=== PATIENT | male | born 1970 | race African-American/Black ===

== ENCOUNTER 2016-10-01 11:55 | Observation (INO) | payer MEDICAID ==
[2016-10-01] MEDS ORDERED: CATAPRES TAB 0.1 MG PO PRN (12:29)
--- NOTE | 2016-10-01 12:36 | DR.H&P ---
H&P - History & Physical for Day of: H&P Date: 10/01/16 - Chief Complaint Chief Complaint: HTN - History of Present Illness History of Present Illness: THE PATIENT IS A 46 YEAR OLD MALE WHO IS A PATIENT OF MY PRIVATE PRACTICE. THE PATIENT HAS BEEN HAVING SOME ISSUES WITH UNCONTROLLED HTN AND WAS SEEN IN THE OFFICE FOR MEDICATION ADJUSTMENTS. THE PATIENT HAS BEEN TAKING NEW MEDICATIONS WITH LITTLE TO NO IMPROVEMENT IN HYPERTENSIVE STATE. SUBSEQUENTLY, THE PATIENT WILL BE ADMITTED TO [facility] FOR FURTHER EVALUATION AND MANAGMENT. - Past Medical History Past Medical History: GERD, Hypertension - Past Surgical History Surgical History: Unknown - Social History Does patient currently use any type of tobacco product: No Have you used tobacco products in the last 12 months: No Type of Tobacco Use: None Does any household member use tobacco: No Alcohol Use: Occasionally Drug Use: None - Review of Systems Constitutional: No Symptoms Reported Eyes: No Symptoms Reported ENT: No Symptoms Reported Respiratory: No Symptoms Reported Cardiovascular: See HPI Gastrointestinal: No Symptoms Reported Genitourinary: No Symptoms Reported Musculoskeletal: No Symptoms Reported Skin: No Symptoms Reported Neurological: No Symptoms Reported Oriented: Normal Eyes: Normal Ear: Normal Nose: Normal Throat: Normal Respiratory: Clear Throughout Cardiovascular: Normal : Normal Auscultation: Bowel Sounds: Normal Palpation: Normal Skin: Normal Musculoskeletal: Normal Mood Description: Calm Affect: Normal Speech Pattern: Clear, Appropriate - Assessment/Plan (1) Hypertensive urgency Status: Acute Plan: HYDRALIZINE 10MG IVP Q4H BP > 180/100. CLONIDINE 0.1MG PO Q4H BP > 180/ 100
[2016-10-01] MEDS: NS 1000 ML 1,000 ML IV SCH (14:09)
[2016-10-01] MEDS: APRESOLINE INJ 20 MG VIAL IVP PRN ×2 (14:10→22:07)
[2016-10-01 14:25] LABS: BASOPHILS % (AUTO) 1.2 % (0.2-1.0); EOSINOPHILS # (AUTO) 0.2 x10^3/uL (0.0-0.2); EOSINOPHILS % (AUTO) 4.5 % (0.9-2.9); HEMATOCRIT 43.9 % (42.0-54.0); LYMPHOCYTES # (AUTO) 1.5 X10^3/uL (1.3-2.9); LYMPHOCYTES % (AUTO) 39.2 % (21.0-51.0); MEAN CORPUSCULAR HGB CONC 34.1 g/dL (33.0-35.0); MEAN CORPUSCULAR VOLUME 93.8 fL (80.0-100.0); MEAN PLATELET VOLUME 8.7 fL (7.4-11.0); MONOCYTES # (AUTO) 0.4 x10^3/uL (0.3-0.8); MONOCYTES % (AUTO) 11.3 % (0.0-13.0); NEUTROPHILS # (AUTO) 1.7 x10^3/uL (2.2-4.8); NEUTROPHILS % (AUTO) 43.8 % (42.0-75.0); PLATELET COUNT 170 X10^3/uL (150.0-450.0); RED BLOOD COUNT 4.68 X10^6/uL (4.7-6.0); RED CELL DISTRIBUTION WIDTH 14.2 % (11.6-16.5); WHITE BLOOD COUNT 3.9 X10^3/uL (3.6-10.0)
[2016-10-01 14:34] LABS: PLATELET MORPHOLOGY COMMENT NORMAL (NORMAL)
--- NOTE | 2016-10-01 14:41 | RAD ---
HISTORY: Hypertension. Study: Portable chest. Comparison: None. Findings: The trachea is midline. The cardiac silhouette is mildly enlarged. The lungs are clear without foc al infiltrate or effusion. The bony thorax is unremarkable. IMPRESSION: Mild cardiomegaly. No acute pulmonary process. Reported By:
[2016-10-01 14:46] LABS: ALANINE AMINOTRANSFERASE 48 Units/L (12-78); ALBUMIN 3.4 g/dL (3.4-5.0); ALKALINE PHOSPHATASE 104 Units/L (46-116); ASPARTATE AMINO TRANSFERASE 24 Units/L (15-37); BLOOD UREA NITROGEN 18 mg/dL (7-18); CALCIUM 8.8 mg/dL (8.5-10.1); CARBON DIOXIDE 30.8 mmol/L (21-32); CHLORIDE 103 mmol/L (98-107); CKMB % 1.8 % (<4); COR NA(FOR HYPERGLY) 140 mmol/L (136-145); CREATINE KINASE 156 Units/L (39-308); CREATINE KINASE MB 2.8 ng/mL (0-4.0); CREATININE 1.83 mg/dL (0.70-1.30); GLUCOSE 114 mg/dL (65-99); SODIUM 140 mmol/L (136-145); TOTAL PROTEIN 7.9 g/dL (6.4-8.2); TROPONIN I 0.06 ng/mL (0-1.5); eGFR BLACK RACES 52 (>60); eGFR NON BLACK RACES 43 (>60)
[2016-10-01 14:49] LABS: CKMB % 1.6 % (<4); CREATINE KINASE MB 2.6 ng/mL (0-4.0); TROPONIN I 0.06 ng/mL (0-1.5)
[2016-10-01 21:12] LABS: CKMB % 1.9 % (<4); CREATINE KINASE MB 2.5 ng/mL (0-4.0); TROPONIN I 0.07 ng/mL (0-1.5)
[2016-10-01] MEDS ORDERED: ZANAFLEX PO PRN (23:57)
[2016-10-02] MEDS: NS 1000 ML 1,000 ML IV SCH ×2 (02:27→04:25)
[2016-10-02] MEDS: APRESOLINE INJ 20 MG VIAL IVP PRN ×2 (02:45→07:30)
[2016-10-02 03:06] LABS: BASOPHILS # (AUTO) 0.1 X10^3/uL (0.0-0.1); BASOPHILS % (AUTO) 1.1 % (0.2-1.0); EOSINOPHILS # (AUTO) 0.2 x10^3/uL (0.0-0.2); EOSINOPHILS % (AUTO) 5.1 % (0.9-2.9); HEMATOCRIT 42.4 % (42.0-54.0); HEMOGLOBIN 14.6 g/dL (13.5-18.0); LYMPHOCYTES # (AUTO) 1.6 X10^3/uL (1.3-2.9); MEAN CORPUSCULAR HEMOGLOBIN 31.9 pg (27.0-34.0); MEAN CORPUSCULAR HGB CONC 34.3 g/dL (33.0-35.0); MEAN CORPUSCULAR VOLUME 92.8 fL (80.0-100.0); MEAN PLATELET VOLUME 8.7 fL (7.4-11.0); MONOCYTES # (AUTO) 0.4 x10^3/uL (0.3-0.8); MONOCYTES % (AUTO) 9.3 % (0.0-13.0); NEUTROPHILS # (AUTO) 2.3 x10^3/uL (2.2-4.8); NEUTROPHILS % (AUTO) 50.5 % (42.0-75.0); PLATELET COUNT 163 X10^3/uL (150.0-450.0); RED BLOOD COUNT 4.57 X10^6/uL (4.7-6.0); RED CELL DISTRIBUTION WIDTH 14.2 % (11.6-16.5); WHITE BLOOD COUNT 4.6 X10^3/uL (3.6-10.0)
[2016-10-02 03:17] LABS: ALANINE AMINOTRANSFERASE 41 Units/L (12-78); ALBUMIN 3.1 g/dL (3.4-5.0); ALKALINE PHOSPHATASE 98 Units/L (46-116); ASPARTATE AMINO TRANSFERASE 25 Units/L (15-37); BLOOD UREA NITROGEN 15 mg/dL (7-18); CALCIUM 8.4 mg/dL (8.5-10.1); CHLORIDE 104 mmol/L (98-107); COR CA(FOR HYPOALB) 9.1 mg/dL (8.5-10.1); COR NA(FOR HYPERGLY) 140 mmol/L (136-145); CREATININE 1.56 mg/dL (0.70-1.30); GLUCOSE 135 mg/dL (65-99); SODIUM 139 mmol/L (136-145); TOTAL PROTEIN 7.3 g/dL (6.4-8.2); eGFR BLACK RACES > 60 (>60); eGFR NON BLACK RACES 51 (>60)
[2016-10-02 03:24] LABS: CREATINE KINASE MB 2.3 ng/mL (0-4.0); TROPONIN I 0.08 ng/mL (0-1.5)
[2016-10-02] MEDS ORDERED: POTASSIUM CHLORIDE LIQ 20 MEQ UDC PO PRN (04:02)
[2016-10-02] MEDS ORDERED: K-LYTE EFFERVESCENT PO PRN (04:02)
[2016-10-02] MEDS ORDERED: K-RIDER 10 MEQ/NS 100 ML 10 MEQ/100 ML BAG IV PRN (04:02)
[2016-10-02] MEDS ORDERED: K-DUR TAB 20 MEQ PO PRN (04:02)
[2016-10-02] MEDS ORDERED: PATIENT'S HOME MEDICATION (Tizanidine Hcl [Zanaflex 4 Mg] 4 MG) PO PRN (08:58)
[2016-10-02] MEDS ORDERED: PATIENT'S HOME MEDICATION (Albuterol Sulfate [Proventil Hfa Inhaler 6.7 Gm] 2 INH) IN PRN (08:58)
[2016-10-02] MEDS ORDERED: NORCO 7.5/325 MG TAB PO PRN (08:58)
[2016-10-02] MEDS ORDERED: HYDRALAZINE HCL 100 MG PO SCH (09:00)
[2016-10-02] MEDS ORDERED: CATAPRES TAB 0.3 MG PO SCH (09:00)
[2016-10-02] MEDS ORDERED: ZANTAC PO SCH (09:00)
[2016-10-02] MEDS ORDERED: CLARITIN PO SCH (09:00)
[2016-10-02] MEDS ORDERED: CELEXA PO SCH (09:00)
[2016-10-02] MEDS ORDERED: PATIENT'S HOME MEDICATION (Losartan Potassium [Losartan Potassium] 100 MG) PO SCH (09:00)
[2016-10-02] MEDS ORDERED: ZANAFLEX PO PRN (09:47)
[2016-10-02] MEDS ORDERED: APRESOLINE TAB 25 MG PO SCH (10:00)
[2016-10-02] MEDS: NEURONTIN CAP 400 MG PO SCH ×2 (11:04→13:38)
[2016-10-02 12:24] VITALS: BP 189/99
[2016-10-02] MEDS ORDERED: PROVENTIL NEB TX 0.083% 2.5MG/ 3ML NEB SCH (13:00)
[2016-10-02] MEDS ORDERED: REQUIP PO SCH (21:00)
[2016-10-02] MEDS ORDERED: SINEquan PO SCH (21:00)
[2016-10-02] MEDS ORDERED: DOXEPIN HCL PO SCH (21:00)
[2016-10-03] MEDS ORDERED: COZAAR PO SCH (09:00)
== END 2016-10-02 15:10 | disposition home or self-care (01) ==
LOC: UNDOADMOB 11:55 → MED/SURG 11:55
PROVIDERS: ADMIT Internal Medicine; ATTEND Internal Medicine
DX: I16.0 Hypertensive urgency (principal); R94.31 Abnormal electrocardiogram [ECG] [EKG]; I51.7 Cardiomegaly; K21.9 Gastro-esophageal reflux disease without esophagitis; R94.4 Abnormal results of kidney function studies
CPT/HCPCS: 36415; 71010; 80053; 82550; 82553; 84132; 84484; 85025; 87086; 93005; 93010; 94760; A4216; A4222; G0378; J0360

== ENCOUNTER 2018-01-02 14:40 | Inpatient (IN) ==
[2018-01-02] MEDS ORDERED: LASIX IVP STA (15:42)
--- NOTE | 2018-01-02 15:47 | DR.EXTPAIN ---
HPI - Time seen Time seen: 15:40 - PCP Primary Care Physician: DOMINIK - Complaint/Symptoms Chief Complaint Doctor Comments: Patient is complaining of hurting all over. Patient was sleeping and had to wake him up for exam. Patient is complaining of his knees hurting and his legs swelling for a few days. states he does not have any water pills. States he can walk with a walker but he mainly stay in bed all day. States he is considering signing the papers to go to rehab. States he lives alone and he is a patient of Dr. Maravilla. He denies any recent trauma. states he has had a stroke and the right side is weak but he can move his arm and legs. He denies chest pain, cold, cough or wheezing. States he has been taking pain pills today. Chief Complaint:: PT C/O BILAT KNEE PAIN. PT DENIES ANY TRAUMA. PT STATES HE HAS BEEN HAVING PAIN FOR THE PAST COUPLE OF DAYS. - Nurses notes reviewed Nurses Notes Review: Yes - Source History Provided: Patient, EMS - Mode of arrival Mode of Arrival: EMS - Timing Onset of Chief Complaint: 12/31/17 - Context History of: Gout, Arthritis - Associated signs and symptoms Associated Signs and Symptoms: Pain, Swelling PMH - PMH Past Medical History: Yes Past Medical History: Arthritis, COPD, CVA, Dyslipidemia, GERD, Gout, Hypertension Past Surgical History: Yes Surgical History: Tonsillectomy, Other - Family History History of Family Medical Conditions: Yes Family Medical History: Hypertension - Social History Does any household member use tobacco: No Alcohol Use: None Do you use any recreational Drugs:: No Lives With: Family Lives Where: Home - infectious screening In the last 2 months have you had wt loss of >10#?: NO Have you had fever, night sweats or hemotysis?: No Have you traveled outside the country in the last 6 months?: No Isolation: Standard ROS - Review of Systems Constitutional: No Symptoms Reported, Weakness Eyes: No Symptoms Reported. negative: See HPI, Eye Pain, Blurred Vision, Tearing, Discharge, Photophobia, Diplopia, Other ENTM: No Symptoms Reported Respiratoy: No Symptoms Reported Cardiovascular: No Symptoms Reported, Edema. negative: See HPI, Chest Pain, Palpitations, Syncope, Cyanosis, Skin Mottling, Other Gastrointestinal/Abdominal: No Symptoms Reported. negative: See HPI, Abdominal Pain, Constipation, Diarrhea, Nausea, Vomiting, Food Intolerance, Other Genitourinary: No Symptoms Reported Neurological: No Symptoms Reported, Problems Walking (knee pain and right side chronic weakness) Musculoskeletal: No Symptoms Reported, Right, Left, Knee Integumentary: No Symptoms Reported. negative: See HPI, Change in Color, Change in Hair/Nails, Dryness, Lesions, Lumps, Rash, Itching, Wound, Bruises, Juandice, Other Hematologic/Lymphatic: No Symptoms Reported Endocrine: No Symptoms Reported Psychiatric: No Symptoms Reported PE - General Limitations: No Limitations General Appearance: Alert, In Distress (slight), Obese - Head Head Exam: Normal Inspection, Atraumatic, Normocephalic - Eyes Eye exam: Normal Appearance, PERRL, EOMI. negative: Scleral Icterus, Conjunctival Injection, Nystagmus, Miosis, Mydrasis, Periorbital Swelling, Periorbital Tenderness, Other - ENT ENT Exam: Normal Exam, Normal Oropharynx, Normal External Ear Exam, Mucous Membranes Moist, TM's Normal Bilaterally - Neck Neck Exam: Normal Inspection, Full ROM, Trachea Midline. negative: Tenderness, Meningismus, Lymphadenopathy, Thyromegaly, Other - Chest Chest Inspection: Normal Inspection, Symmetric Chest Wall Rise - Respiratory Respiratory Exam: Normal Lung Sounds Bilat Respiratory Exam: Bilateral Clear to Auscultation - Cardiovascular Cardiovascular Exam: Regular Rate, Normal Rhythm, Normal Heart Sounds, Systolic Murmur - Abdominal Exam Abdominal Exam: Normal Inspection, Normal Bowel Sounds, Soft Abdominal Tenderness: negative: RUQ, RLQ, LUQ, LLQ, Epigastrium, Suprapubic, Diffuse, Mild, Moderate, Severe, Other - Extremities Extremities Exam: Normal Inspection, Full ROM, Normal Capillary Refill, Edema (2 -3+ edema), Joint Swelling (right knee with swelling; warm) - Upper Extremities Shoulder Exam: Normal Inspection, Full ROM Arm Exam: Normal Inspection, Full ROM. negative: Tenderness, Swelling, Abrasion , Laceration, Ecchymosis, Deformity, Crepitus, Erythema, Other Elbow Exam: Normal Inspection, Full ROM, Swelling (right arm with moderated swelling). negative: Tenderness, Abrasion, Laceration, Ecchymosis, Deformity, Crepitus, Dislocation, Erythema, Effusion, Pain w/ pronation, Pain w/ Spuination , Tenderness over Radial Head, Other Forearm Exam: Normal Inspection, Full ROM, Swelling. negative: Tenderness Hand Exam: Normal Inspection, Full ROM, Swelling (right hand with moderate swelling; no bruising or pain). negative: Tenderness Neuromotor Exam: Normal Exam. negative: Thumb Opposition (right hand unable to approximate fingers well) Neurosensory Exam: Normal Exam Upper Ext. Vascular Exam: Capillary Refill, Radial Pulse (normal) - Lower Extremities Hip/Pelvis Exam: Normal Inspection, Full ROM Upper Leg Exam: Normal Inspection. negative: Full ROM (right leg with decreased strength 3-4/5) Knee Exam: Normal Inspection, Tenderness (right knee with swelling, warm ) Lower Leg Exam: Normal Inspection, Swelling (right lower leg with 2-3+ edema). negative: Tenderness Ankle Exam: Normal Inspection, Swelling (right leg) Foot/Toe Exam: Normal Inspection, Full ROM, Swelling Neurovascular/Tendon Exam: Normal Capillary Refill Gait Exam: Not Tested/Not Observed - Back Back Exam: Normal Inspection, Full ROM - Neurological Neurological Exam: Alert, Oriented X3. negative: CN II-XII Intact (right hemiparesis), Normal Gait (not tested) - Psychiatric Psychiatric Exam: Normal Affect, Normal Mood - Skin Skin Exam: Warm, Dry, Intact, Normal Color Type of Lesion: negative: Rash, Abscess, Laceration, Foreign Body, Bite/Sting, Abrasion, Other Distribution: negative: Generalized, Involves Palms/Soles, Head, Face, Neck, Thorax, Chest, Back, Abdomen, Genitals, LUE, LLE, RUE, RLE, Other Description: negative: Size, Tenderness, Erythematous, Swelling, Macular, Papular, Vesicular, Blisters, Cofluent, Bullous, Petechial, Purpuric, Urticarial , Crusting, Discharge, Fluctuant, Indurated, Other - Vital Signs Vitals: Temperature 99.5 F Pulse Rate 73 Respiratory Rate 20 Blood Pressure [Right Arm] 188/110 Blood Pressure [Left Arm] 189/99 Blood Pressure 148/69 O2 Sat by Pulse Oximetry 97 Course - Reevaluation 1st: Improved - Consultation Called: 19:55 Call Returned: 19:55 (Dr. Maravilla to admit) - Education/Counseling Education/Counseling: Patient, Family Educated On: Treatment, Diagnosis, Needs for Follow Up ROR - Labs Reviewed Laboratory Results Reviewed?: Yes (All labs and x-ray results reviewed and discussed with patient) Result Diagrams: 01/02/18 15:52 01/02/18 15:52 - XRAY XRAY Interpreted by: Radiologist (CXR: Cardiomegaly with increased incardiac size compared to prior studies suggest cardiomegaly.), Both (Right knee: Nonspecific soft tissue swelling. Mild medial compartment osteoarthritis) XRAY Findings: Doppler venous studies: Negative for DVT. - EKG Rate: 71 [place]: Normal Rhythm: NSR Block: None ST: Nonsp - Labs Reviewed Laboratory: WBC 4.9 X10^3/uL (3.6-10.0) 01/02/18 15:52 RBC 3.18 X10^6/uL (4.7-6.0) L 01/02/18 15:52 Hgb 10.0 g/dL (13.5-18.0) L 01/02/18 15:52 Hct 29.4 % (42.0-54.0) L 01/02/18 15:52 MCV 92.6 fL (80.0-100.0) 01/02/18 15:52 MCH 31.3 pg (27.0-34.0) 01/02/18 15:52 MCHC 33.8 g/dL (33.0-35.0) 01/02/18 15:52 RDW 15.0 % (11.6-16.5) 01/02/18 15:52 Plt Count 148 X10^3/uL (150.0-450.0) L 01/02/18 15:52 MPV 9.0 fL (7.4-11.0) 01/02/18 15:52 Neut % (Auto) 55.9 % (42.0-75.0) 01/02/18 15:52 Lymph % (Auto) 29.8 % (21.0-51.0) 01/02/18 15:52 [place] % (Auto) 8.6 % (0.0-13.0) 01/02/18 15:52 Eos % (Auto) 4.3 % (0.9-2.9) H 01/02/18 15:52 Baso % (Auto) 1.4 % (0.2-1.0) H 01/02/18 15:52 Neut # (Auto) 2.7 x10^3/uL (2.2-4.8) 01/02/18 15:52 Lymph # (Auto) 1.5 X10^3/uL (1.3-2.9) 01/02/18 15:52 [place] # (Auto) 0.4 x10^3/uL (0.3-0.8) 01/02/18 15:52 Eos # (Auto) 0.2 x10^3/uL (0.0-0.2) 01/02/18 15:52 Baso # (Auto) 0.1 X10^3/uL (0.0-0.1) 01/02/18 15:52 Absolute Nucleated RBC 0.0 /100WBC 01/02/18 15:52 INR Target Range - 01/02/18 15:52 INR 1.09 (0.8-1.3) 01/02/18 15:52 APTT 35.8 SECONDS (22.9-36.5) 01/02/18 15:52 PTT Comment - 01/02/18 15:52 D-Dimer 853 ng/mL (0-400) H* 01/02/18 15:52 Sodium 143 mmol/L (136-145) 01/02/18 15:52 Corrected Sodium 144 mmol/L (136-145) 01/02/18 15:52 Potassium 3.4 mmol/L (3.5-5.1) L 01/02/18 15:52 Chloride 106 mmol/L (98-107) 01/02/18 15:52 Carbon Dioxide 32.1 mmol/L (21-32) H 01/02/18 15:52 BUN 21 mg/dL (7-18) H 01/02/18 15:52 Creatinine 1.88 mg/dL (0.70-1.30) H 01/02/18 15:52 Est GFR (MDRD) Af Amer 50 (>60) L 01/02/18 15:52 Est GFR (MDRD) Non-Af 41 (>60) L 01/02/18 15:52 Glucose 128 mg/dL (65-99) H 01/02/18 15:52 Uric Acid 8.8 mg/dL (3.5-7.2) H 01/02/18 15:52 Calcium 8.5 mg/dL (8.5-10.1) 01/02/18 15:52 Corrected Calcium TNP 01/02/18 15:52 Magnesium 1.9 mg/dL (1.7-2.9) 01/02/18 15:52 Total Bilirubin 0.40 mg/dL (0.2-1.0) 01/02/18 15:52 AST 17 Units/L (15-37) 01/02/18 15:52 ALT 22 Units/L (12-78) 01/02/18 15:52 Alkaline Phosphatase 81 Units/L (46-116) 01/02/18 15:52 Creatine Kinase 287 Units/L (39-308) 01/02/18 15:52 CK-MB (CK-2) 2.0 ng/mL (0-4.0) 01/02/18 15:52 CK/CKMB % Calc 0.7 % (<4) 01/02/18 15:52 Troponin I 0.03 ng/mL (0-1.5) 01/02/18 15:52 B-Natriuretic Peptide 681 pg/mL (0-79) H* 01/02/18 15:52 Total Protein 7.6 g/dL (6.4-8.2) 01/02/18 15:52 Albumin 3.5 g/dL (3.4-5.0) 01/02/18 15:52 Globulin 4.1 g/dL (2.5-4.5) 01/02/18 15:52 Albumin/Globulin Ratio 0.9 Ratio (1.1-2.1) L 01/02/18 15:52 - Diagnosis Discharge Problem: Acute gout, Chronic kidney disease (CKD), Cerebrovascular accident (CVA) with right hemiparesis, Dependent edema Congestive heart failure (CHF) Qualifiers: Heart failure type: diastolic Heart failure chronicity: acute on chronic Qualified Code(s): I50.33 - Acute on chronic diastolic (congestive) heart failure Cardiomyopathy Qualifiers: Cardiomyopathy type: unspecified Qualified Code(s): I42.9 - Cardiomyopathy, unspecified - Discharge Plan Condition: Stable - Follow ups/Referrals Follow ups/Referrals: AMY MARAVILLA [Primary Care Provider] - 3 days - Instructions
[2018-01-02 15:59] LABS: BASOPHILS # (AUTO) 0.1 X10^3/uL (0.0-0.1); BASOPHILS % (AUTO) 1.4 % (0.2-1.0); EOSINOPHILS # (AUTO) 0.2 x10^3/uL (0.0-0.2); EOSINOPHILS % (AUTO) 4.3 % (0.9-2.9); HEMATOCRIT 29.4 % (42.0-54.0); LYMPHOCYTES # (AUTO) 1.5 X10^3/uL (1.3-2.9); LYMPHOCYTES % (AUTO) 29.8 % (21.0-51.0); MEAN CORPUSCULAR HEMOGLOBIN 31.3 pg (27.0-34.0); MEAN CORPUSCULAR HGB CONC 33.8 g/dL (33.0-35.0); MEAN CORPUSCULAR VOLUME 92.6 fL (80.0-100.0); MONOCYTES # (AUTO) 0.4 x10^3/uL (0.3-0.8); MONOCYTES % (AUTO) 8.6 % (0.0-13.0); NEUTROPHILS # (AUTO) 2.7 x10^3/uL (2.2-4.8); NEUTROPHILS % (AUTO) 55.9 % (42.0-75.0); PLATELET COUNT 148 X10^3/uL (150.0-450.0); RED BLOOD COUNT 3.18 X10^6/uL (4.7-6.0); WHITE BLOOD COUNT 4.9 X10^3/uL (3.6-10.0)
[2018-01-02] MEDS ORDERED: LASIX ONE (16:04)
[2018-01-02 16:18] LABS: BLOOD UREA NITROGEN 21 mg/dL (7-18); CALCIUM 8.5 mg/dL (8.5-10.1); CARBON DIOXIDE 32.1 mmol/L (21-32); CHLORIDE 106 mmol/L (98-107); COR NA(FOR HYPERGLY) 144 mmol/L (136-145); CREATININE 1.88 mg/dL (0.70-1.30); SODIUM 143 mmol/L (136-145); TROPONIN I 0.03 ng/mL (0-1.5); eGFR NON BLACK RACES 41 (>60)
[2018-01-02 16:21] LABS: ALANINE AMINOTRANSFERASE 22 Units/L (12-78); ALBUMIN 3.5 g/dL (3.4-5.0); ALKALINE PHOSPHATASE 81 Units/L (46-116); ASPARTATE AMINO TRANSFERASE 17 Units/L (15-37); CKMB % 0.7 % (<4); CREATINE KINASE 287 Units/L (39-308); MAGNESIUM 1.9 mg/dL (1.7-2.9); TOTAL PROTEIN 7.6 g/dL (6.4-8.2); URIC ACID 8.8 mg/dL (3.5-7.2)
--- NOTE | 2018-01-02 16:41 | RAD ---
Examination: Right knee, four views History: Pain and swelling no trauma Findings: There is no evidence for fracture or dislocation or synovial effusion. There is narrowing o f the medial compartment. No bone destruction or abnormal calcification. There is marked soft tissue swelling. Impression: Nonspecific soft tissue swelling. Mild medial compartment osteoarthritis. Reported By:
--- NOTE | 2018-01-02 16:43 | RAD ---
HISTORY: Chest pain Study: Single-view chest Comparison: 10/01/2016. Findings: Trachea is midline. There is increasing cardiomegaly compared to prior studies. Cardiac configuration suggests cardiomyopathy. Only mild pulmonary vascular congestion is seen. No infiltrate, CHF, pleura l fluid or pneumothorax is seen. Osseous structures are intact. IMPRESSION: Cardiomegaly with increase in cardiac size compared to the prior studies. Cardiac configuration sugge sts cardiomyopathy. There is mild pulmonary vascular congestion without acute abnormality. Reported By:
[2018-01-02 16:44] LABS: B-TYPE NATRIURETIC PEPTIDE 681 pg/mL (0-79)
--- NOTE | 2018-01-02 18:46 | VAS ---
HISTORY: Right leg pain and swelling for 2 weeks and elevated D-dimer Study: Doppler ultrasound of the deep veins of both lower extremities Comparison: None TECHNIQUE: Multiple godinez scale and color flow Doppler images of the deep venous system were obtained of the right and left lower extremity. FINDINGS: The deep venous system of the right and left lower extremities were evaluated from the level of the c ommon femoral vein through the popliteal vein. Normal color flow and augmentation can be observed. In addition, normal compression is seen throughout the deep venous system. IMPRESSION: 1. Negative for DVT. Reported By:
[2018-01-02] MEDS ORDERED: COLCRYS TAB 0.6 MG PO STA (19:59)
[2018-01-02] MEDS ORDERED: HumuLIN R SC PRN (20:00)
[2018-01-02] MEDS ORDERED: HumuLIN R SUBCUT PRN (20:00)
[2018-01-02] MEDS ORDERED: NORMODYNE TAB 100 MG ONE (20:28)
[2018-01-02] MEDS: NORMODYNE TAB 200 MG PO SCH (20:33)
[2018-01-02] MEDS: LASIX IVP SCH (20:34)
[2018-01-02] MEDS: CATAPRES TAB 0.3 MG PO SCH ×2 (20:34→22:27)
[2018-01-02 21:50] LABS: CKMB % 0.7 % (<4); CREATINE KINASE MB 1.9 ng/mL (0-4.0); TROPONIN I 0.03 ng/mL (0-1.5)
[2018-01-02] MEDS ORDERED: PATIENT'S HOME MEDICATION (Hydralazine [Hydralazine] 100 MG) PO SCH (22:00)
[2018-01-02] MEDS ORDERED: COLCRYS TAB 0.6 MG ONE (22:35)
[2018-01-02] MEDS: NEURONTIN CAP 400 MG PO SCH (22:41)
[2018-01-02] MEDS: NORCO 10/325 TAB PO SCH (22:42)
[2018-01-02] MEDS: APRESOLINE TAB 25 MG PO SCH (22:42)
[2018-01-02] MEDS: LOVENOX INJ 40 MG SYR SC SCH (22:47)
[2018-01-02] MEDS: ZOCOR TAB 40 MG PO SCH (22:55)
[2018-01-02] MEDS: ZYLOPRIM PO SCH (22:56)
[2018-01-02 23:31] VITALS: BMI 43.1
[2018-01-03] MEDS ORDERED: POTASSIUM CHL 40 MEQ/NS 0.45% 500 ML IV PRN (02:13)
[2018-01-03] MEDS ORDERED: POTASSIUM CHL 60 MEQ/NS 0.45% 500 ML IV PRN (02:13)
[2018-01-03] MEDS ORDERED: POTASSIUM CHLORIDE LIQ 20 MEQ UDC PO PRN (02:13)
[2018-01-03] MEDS ORDERED: K-RIDER 10 MEQ/NS 100 ML 10 MEQ/100 ML BAG IV PRN (02:13)
[2018-01-03] MEDS: NORCO 10/325 TAB PO SCH ×4 (02:36→21:15)
[2018-01-03] MEDS: K-LYTE EFFERVESCENT PO PRN ×2 (02:38→06:18)
[2018-01-03 04:08] LABS: BASOPHILS % (AUTO) 1.1 % (0.2-1.0); EOSINOPHILS # (AUTO) 0.3 x10^3/uL (0.0-0.2); EOSINOPHILS % (AUTO) 5.5 % (0.9-2.9); HEMATOCRIT 30.6 % (42.0-54.0); HEMOGLOBIN 10.4 g/dL (13.5-18.0); LYMPHOCYTES # (AUTO) 1.9 X10^3/uL (1.3-2.9); LYMPHOCYTES % (AUTO) 40.7 % (21.0-51.0); MEAN CORPUSCULAR HEMOGLOBIN 31.2 pg (27.0-34.0); MEAN CORPUSCULAR HGB CONC 33.9 g/dL (33.0-35.0); MEAN CORPUSCULAR VOLUME 91.9 fL (80.0-100.0); MEAN PLATELET VOLUME 9.1 fL (7.4-11.0); MONOCYTES # (AUTO) 0.4 x10^3/uL (0.3-0.8); MONOCYTES % (AUTO) 9.2 % (0.0-13.0); NEUTROPHILS % (AUTO) 43.5 % (42.0-75.0); PLATELET COUNT 149 X10^3/uL (150.0-450.0); RED BLOOD COUNT 3.33 X10^6/uL (4.7-6.0); RED CELL DISTRIBUTION WIDTH 15.1 % (11.6-16.5); WHITE BLOOD COUNT 4.6 X10^3/uL (3.6-10.0)
[2018-01-03 04:19] LABS: ALANINE AMINOTRANSFERASE 23 Units/L (12-78); ALBUMIN 3.7 g/dL (3.4-5.0); ALKALINE PHOSPHATASE 89 Units/L (46-116); ASPARTATE AMINO TRANSFERASE 15 Units/L (15-37); BLOOD UREA NITROGEN 19 mg/dL (7-18); CALCIUM 8.4 mg/dL (8.5-10.1); CARBON DIOXIDE 34.9 mmol/L (21-32); CHLORIDE 103 mmol/L (98-107); COR NA(FOR HYPERGLY) 143 mmol/L (136-145); CREATININE 1.92 mg/dL (0.70-1.30); SODIUM 142 mmol/L (136-145); TOTAL PROTEIN 8.1 g/dL (6.4-8.2); eGFR NON BLACK RACES 40 (>60)
[2018-01-03 04:27] LABS: CKMB % 0.8 % (<4); CREATINE KINASE MB 2.3 ng/mL (0-4.0); TROPONIN I 0.03 ng/mL (0-1.5)
[2018-01-03] MEDS: APRESOLINE TAB 25 MG PO SCH ×3 (06:18→21:14)
[2018-01-03] MEDS: CATAPRES TAB 0.3 MG PO SCH ×3 (06:19→21:14)
[2018-01-03] MEDS: NEURONTIN CAP 400 MG PO SCH ×2 (06:20→13:55)
[2018-01-03] MEDS: ZYLOPRIM PO SCH (08:46)
[2018-01-03] MEDS: COZAAR PO SCH (08:47)
[2018-01-03] MEDS: NORMODYNE TAB 200 MG PO SCH ×2 (08:47→21:13)
[2018-01-03] MEDS: LASIX IVP SCH ×2 (08:51→21:12)
--- NOTE | 2018-01-03 09:43 | DR.H&P ---
H&P - History & Physical for Day of: H&P Date: 01/02/18 - Chief Complaint Chief Complaint: R ARM , R LEG SWELLING, SOB - History of Present Illness History of Present Illness: 47 BM ER ADMISSION AFTER PRESENTING WITH CO RIGHT UPPER EXTREMITY AND RIGHT LOWER LEG VERY SWOLLEN, INCREASED PAIN IN RIGHT KNEE AND RIGHT ELBOW. PT HAS SUFFERED FROM CVA WITH CHRONIC RIGHT SIDE WEAKNESS. PT HAD US NEGATIVE FOR DVT. PT HAD CXR IN ER WITH INCREASED VASCULAR CONGESTION. PT WAS ADMITTED, GIVEN IV LASIX, ELEVATED URIC ACID LEVEL SUGGESTING ACUTE GOUT AND TREATED WITH COLCHICINE. PLAN TO CONTINUE RESP CARE, EVALUATE AND TREAT ACUTE ILLNESS. - Past Medical History Past Medical History: Arthritis, COPD, CVA, Dyslipidemia, GERD, Gout, Hypertension - Past Surgical History Surgical History: Tonsillectomy, Other - Family History Family Medical History: Hypertension - Social History Does patient currently use any type of tobacco product: No Does any household member use tobacco: No Alcohol Use: None Drug Use: None - Medications Home Medications: No Known Drug Allergies Allergy (Verified 01/02/18 20:03) CONTINUE taking the following medications allopurinol 100 mg PO QDAY 01/02/18 [History] aspirin 81 mg PO QDAY 01/02/18 [History] clopidogrel [Plavix] 75 mg PO QDAY 01/02/18 [History] doxepin 50 mg PO QHS 01/02/18 [History] hydrocodone-acetaminophen [[place]] 1 tab PO Q6H 01/02/18 [History] minoxidil 2.5 mg PO BID 01/02/18 [History] simvastatin 40 mg PO QHS 01/02/18 [History] - Review of Systems Constitutional: Weakness Eyes: No Symptoms Reported ENT: No Symptoms Reported Respiratory: Shortness of Breath Cardiovascular: Edema. denies: Chest Pain Gastrointestinal: No Symptoms Reported Genitourinary: No Symptoms Reported Musculoskeletal: Shoulder Pain, Arm Pain, Leg Pain Skin: No Symptoms Reported Neurological: Weakness - Physical Exam Vital Signs: Temperature 97.8 F Pulse Rate [Right] 62 Pulse Rate 73 Respiratory Rate 20 Blood Pressure [Right Arm] 160/96 Blood Pressure [Left Arm] 196/110 Blood Pressure 148/69 O2 Sat by Pulse Oximetry 100 Eyes: Normal Ear: Normal Nose: Normal Throat: Normal Respiratory: Diminished Throughout Cardiovascular: Normal, Edema (+2 EDEMA TO RLE, +1 LLE) Palpation: Normal Tenderness: Normal Skin: Normal Musculoskeletal: Right, Arm, Knee, Leg, Swelling, Tender Psychiatric: Normal Mood Description: Calm Speech Pattern: Clear, Appropriate - Assessment/Plan (1) Congestive heart failure (CHF) Qualifiers: Heart failure type: diastolic Heart failure chronicity: acute on chronic Qualified Code(s): I50.33 - Acute on chronic diastolic (congestive) heart failure Status: Acute Plan: ADMIT CE ON ADMISSION, CARDIAC MONITORING. BP AND BLOOD SUGAR CONTROL. IV LASIX, REPEAT AM LABS, SUPPLEMENTAL O2. STRICT I & OS. VERIFY HOME MEDS. PAIN CONTROL, ACUTE GOUT FLARE TREATMENT WITH COLCHICINE. RESUME HOME BP MEDICATION (2) Acute gout Status: Acute (3) Cardiomyopathy Qualifiers: Cardiomyopathy type: unspecified Qualified Code(s): I42.9 - Cardiomyopathy , unspecified Status: Acute (4) Chronic kidney disease (CKD) Status: Acute (5) Cerebrovascular accident (CVA) with right hemiparesis Status: Acute (6) Dependent edema Status: Acute - Allergies Allergies/Adverse Reactions: Allergies Allergy/AdvReac Type Severity Reaction Status Date / Time No Known Drug Allergies Allergy Verified 01/02/18 20:03
--- NOTE | 2018-01-03 09:50 | PCM.PROG ---
Progress Note - Progress Note for Day of Date of Exam: 01/03/18 - Subjective Subjective: 47 BM ER ADMISSION ON 01/02 WITH CHF EXACERBATION, SOB AND INCREASED RUE AND LLE EDEMA, ACUTE GOUT ATTACK. PT CONTINUES TO CO RUE AND LLE PAIN AND STIFFNESS THIS AM. PT RECIVED DOSE OF COLCRYS IN ER AND IV LASIX, LASIX DECREASE TO 20MG IV BID DUE TO SLIGHT INCREASE IN CREAT. PT ENCOURAGE TO ORALLY HYDRATE, BS CONTROL. SOLU MEDROL 40MG X 1 DOSE, REPEAT AM CXR. STRICT I & OS, RIGHT ELBOW XRAY ORDERED, SED RATE AND CRP. PT STATES SOB IMPROVED FROM ADMISSION - Past Medical Family Social History Allergies: Allergies No Known Drug Allergies Allergy (Verified 01/02/18 20:03) - Vital Signs and I&O's Vital Signs: Temperature 97.8 F Pulse Rate [Right] 62 Pulse Rate 73 Respiratory Rate 20 Blood Pressure [Right Arm] 160/96 Blood Pressure [Left Arm] 196/110 Blood Pressure 148/69 O2 Sat by Pulse Oximetry 100 Intake and Output: Intake & Output 12/31/17 01/01/18 01/02/18 01/03/18 11:59 11:59 11:59 11:59 Intake Total 910 / 910 Output Total 400 / 400 Balance 510 / 510 - Physical Exam Oriented: Normal Eyes: Normal Ear: Normal Nose: Normal Throat: Normal Respiratory: Diminished Cardiovascular: Normal, Edema (+2 EDEMA TO RLE, +1 LLE) Tenderness: Normal Skin: Normal Musculoskeletal: Right, Arm, Knee, Leg, Swelling, Tender Psychiatric: Normal Mood Description: Calm Speech Pattern: Clear, Appropriate - Laboratory and Diagnostics Result Diagrams: 01/03/18 03:45 01/03/18 03:45 Labs: Laboratory WBC 4.6 X10^3/uL (3.6-10.0) 01/03/18 03:45 RBC 3.33 X10^6/uL (4.7-6.0) L 01/03/18 03:45 Hgb 10.4 g/dL (13.5-18.0) L 01/03/18 03:45 Hct 30.6 % (42.0-54.0) L 01/03/18 03:45 MCV 91.9 fL (80.0-100.0) 01/03/18 03:45 MCH 31.2 pg (27.0-34.0) 01/03/18 03:45 MCHC 33.9 g/dL (33.0-35.0) 01/03/18 03:45 RDW 15.1 % (11.6-16.5) 01/03/18 03:45 Plt Count 149 X10^3/uL (150.0-450.0) L 01/03/18 03:45 Plt Count Comment Cancelled 01/03/18 03:45 MPV 9.1 fL (7.4-11.0) 01/03/18 03:45 Neut % (Auto) 43.5 % (42.0-75.0) 01/03/18 03:45 Lymph % (Auto) 40.7 % (21.0-51.0) 01/03/18 03:45 [place] % (Auto) 9.2 % (0.0-13.0) 01/03/18 03:45 Eos % (Auto) 5.5 % (0.9-2.9) H 01/03/18 03:45 Baso % (Auto) 1.1 % (0.2-1.0) H 01/03/18 03:45 Neut # (Auto) 2.0 x10^3/uL (2.2-4.8) L 01/03/18 03:45 Lymph # (Auto) 1.9 X10^3/uL (1.3-2.9) 01/03/18 03:45 [place] # (Auto) 0.4 x10^3/uL (0.3-0.8) 01/03/18 03:45 Eos # (Auto) 0.3 x10^3/uL (0.0-0.2) H 01/03/18 03:45 Baso # (Auto) 0.0 X10^3/uL (0.0-0.1) 01/03/18 03:45 Absolute Nucleated RBC 0.0 /100WBC 01/03/18 03:45 Nucleated RBCs Cancelled 01/03/18 03:45 Atypical Lymphocytes Cancelled 01/03/18 03:45 Blast Cells Cancelled 01/03/18 03:45 Smudge Cells Cancelled 01/03/18 03:45 Toxic Granulation Cancelled 01/03/18 03:45 Dohle Bodies Cancelled 01/03/18 03:45 Joel Rods Cancelled 01/03/18 03:45 Plt Clumps, EDTA Cancelled 01/03/18 03:45 Giant Platelets Cancelled 01/03/18 03:45 Plt Morphology Comment Cancelled 01/03/18 03:45 RBC Morphology Cancelled 01/03/18 03:45 Dimorphic RBCs Cancelled 01/03/18 03:45 Polychromasia Cancelled 01/03/18 03:45 Hypochromasia Cancelled 01/03/18 03:45 Poikilocytosis Cancelled 01/03/18 03:45 Basophilic Stippling Cancelled 01/03/18 03:45 Anisocytosis Cancelled 01/03/18 03:45 Microcytosis Cancelled 01/03/18 03:45 Macrocytosis Cancelled 01/03/18 03:45 Spherocytes Cancelled 01/03/18 03:45 Pappenheimer Bodies Cancelled 01/03/18 03:45 Sickle Cells Cancelled 01/03/18 03:45 Target Cells Cancelled 01/03/18 03:45 Tear Drop Cells Cancelled 01/03/18 03:45 Ovalocytes Cancelled 01/03/18 03:45 Stomatocytes Cancelled 01/03/18 03:45 Helmet Cells Cancelled 01/03/18 03:45 [place] Bodies Cancelled 01/03/18 03:45 [place] Rings Cancelled 01/03/18 03:45 [place] Cells Cancelled 01/03/18 03:45 Crenated Cell Cancelled 01/03/18 03:45 Acanthocytes (Spur) Cancelled 01/03/18 03:45 Rouleaux Cancelled 01/03/18 03:45 Schistocytes Cancelled 01/03/18 03:45 INR Target Range - 01/02/18 15:52 INR 1.09 (0.8-1.3) 01/02/18 15:52 APTT 35.8 SECONDS (22.9-36.5) 01/02/18 15:52 PTT Comment - 01/02/18 15:52 D-Dimer 853 ng/mL (0-400) H* 01/02/18 15:52 Sodium 142 mmol/L (136-145) 01/03/18 03:45 Corrected Sodium 143 mmol/L (136-145) 01/03/18 03:45 Potassium 3.5 mmol/L (3.5-5.1) 01/03/18 03:45 Chloride 103 mmol/L (98-107) 01/03/18 03:45 Carbon Dioxide 34.9 mmol/L (21-32) H 01/03/18 03:45 BUN 19 mg/dL (7-18) H 01/03/18 03:45 Creatinine 1.92 mg/dL (0.70-1.30) H 01/03/18 03:45 Est GFR (MDRD) Af Amer 49 (>60) L 01/03/18 03:45 Est GFR (MDRD) Non-Af 40 (>60) L 01/03/18 03:45 Glucose 126 mg/dL (65-99) H 01/03/18 03:45 POC Glucose (mg/dL) 149 mg/dL (65-99) H 01/03/18 05:39 Uric Acid 8.8 mg/dL (3.5-7.2) H 01/02/18 15:52 Calcium 8.4 mg/dL (8.5-10.1) L 01/03/18 03:45 Corrected Calcium TNP 01/03/18 03:45 Magnesium 1.9 mg/dL (1.7-2.9) 01/02/18 15:52 Total Bilirubin 0.40 mg/dL (0.2-1.0) 01/03/18 03:45 AST 15 Units/L (15-37) 01/03/18 03:45 ALT 23 Units/L (12-78) 01/03/18 03:45 Alkaline Phosphatase 89 Units/L (46-116) 01/03/18 03:45 Creatine Kinase 283 Units/L (39-308) 01/03/18 03:45 CK-MB (CK-2) 2.3 ng/mL (0-4.0) 01/03/18 03:45 CK/CKMB % Calc 0.8 % (<4) 01/03/18 03:45 Troponin I 0.03 ng/mL (0-1.5) 01/03/18 03:45 B-Natriuretic Peptide 681 pg/mL (0-79) H* 01/02/18 15:52 Total Protein 8.1 g/dL (6.4-8.2) 01/03/18 03:45 Albumin 3.7 g/dL (3.4-5.0) 01/03/18 03:45 Globulin 4.4 g/dL (2.5-4.5) 01/03/18 03:45 Albumin/Globulin Ratio 0.8 Ratio (1.1-2.1) L 01/03/18 03:45 - Plan (1) Congestive heart failure (CHF) Status: Acute Qualifiers: Heart failure type: diastolic Heart failure chronicity: acute on chronic Qualified Code(s): I50.33 - Acute on chronic diastolic (congestive) heart failure Plan: CE ON ADMISSION, CARDIAC MONITORING. BP AND BLOOD SUGAR CONTROL. IV LASIX, REPEAT AM LABS, SUPPLEMENTAL O2. STRICT I & OS. PAIN CONTROL, ACUTE GOUT FLARE TREATMENT WITH COLCHICINE, ADDED SOLU MEDROL X 1 DOSE, RUE XRAY, CRP AND SED RATE. RESUME HOME BP MEDICATION (2) Acute gout Status: Acute (3) Cardiomyopathy Status: Acute Qualifiers: Cardiomyopathy type: unspecified Qualified Code(s): I42.9 - Cardiomyopathy , unspecified (4) Chronic kidney disease (CKD) Status: Acute (5) Cerebrovascular accident (CVA) with right hemiparesis Status: Acute (6) Dependent edema Status: Acute
[2018-01-03] MEDS ORDERED: SOLU-Medrol 40 MG VIAL IVP SCH (10:00)
[2018-01-03 10:04] LABS: TROPONIN I 0.02 ng/mL (0-1.5)
[2018-01-03] MEDS: NS 1000 ML 1,000 ML IV SCH (10:22)
[2018-01-03] MEDS ORDERED: NEURONTIN CAP 100 MG PO ONE (14:02)
--- NOTE | 2018-01-03 15:11 | RAD ---
Examination: Right elbow, three views History: Swelling and pain, gout Findings: Available submitted images of the elbow are technically suboptimal and nonstandard. There i s marked surrounding soft tissue swelling. There is no obvious fracture or dislocation or bone destru ction. Impression: Technically nondiagnostic examination right elbow. No obvious fracture or dislocation not ed. Additional imaging will be necessary to exclude significant abnormality, especially involving the radial head. Reported By:
--- NOTE | 2018-01-03 15:12 | RAD ---
Examination: Portable AP chest History: CHF SOB Comparison 01/02/2018 Findings: Continued marked cardiac enlargement with grossly clear lungs and pleural spaces. Impression: No change. Persistent cardiac enlargement. No interval abnormality demonstrated. Reported By:
[2018-01-03] MEDS: LOVENOX INJ 40 MG SYR SC SCH (21:11)
[2018-01-03] MEDS: ZOCOR TAB 40 MG PO SCH (21:13)
[2018-01-03] MEDS: NEURONTIN CAP 300 MG PO SCH (21:14)
[2018-01-04] MEDS: APRESOLINE INJ 20 MG VIAL IVP PRN (01:57)
[2018-01-04] MEDS: NORVASC TAB 10 MG PO SCH ×2 (01:58→20:26)
[2018-01-04] MEDS: NORCO 10/325 TAB PO SCH ×4 (02:51→20:23)
[2018-01-04 05:17] LABS: BASOPHILS % (AUTO) 0.5 % (0.2-1.0); EOSINOPHILS % (AUTO) 0.1 % (0.9-2.9); HEMATOCRIT 31.6 % (42.0-54.0); HEMOGLOBIN 10.5 g/dL (13.5-18.0); LYMPHOCYTES # (AUTO) 1.2 X10^3/uL (1.3-2.9); LYMPHOCYTES % (AUTO) 19.6 % (21.0-51.0); MEAN CORPUSCULAR HEMOGLOBIN 30.8 pg (27.0-34.0); MEAN CORPUSCULAR HGB CONC 33.2 g/dL (33.0-35.0); MEAN CORPUSCULAR VOLUME 92.7 fL (80.0-100.0); MONOCYTES # (AUTO) 0.2 x10^3/uL (0.3-0.8); NEUTROPHILS # (AUTO) 4.8 x10^3/uL (2.2-4.8); NEUTROPHILS % (AUTO) 76.8 % (42.0-75.0); PLATELET COUNT 164 X10^3/uL (150.0-450.0); RED BLOOD COUNT 3.41 X10^6/uL (4.7-6.0); RED CELL DISTRIBUTION WIDTH 14.7 % (11.6-16.5); WHITE BLOOD COUNT 6.2 X10^3/uL (3.6-10.0)
[2018-01-04 05:37] LABS: ALANINE AMINOTRANSFERASE 28 Units/L (12-78); ALBUMIN 3.7 g/dL (3.4-5.0); ALKALINE PHOSPHATASE 83 Units/L (46-116); ASPARTATE AMINO TRANSFERASE 19 Units/L (15-37); BLOOD UREA NITROGEN 24 mg/dL (7-18); CALCIUM 8.1 mg/dL (8.5-10.1); CARBON DIOXIDE 31.8 mmol/L (21-32); CHLORIDE 100 mmol/L (98-107); COR NA(FOR HYPERGLY) 140 mmol/L (136-145); CREATININE 1.93 mg/dL (0.70-1.30); SODIUM 139 mmol/L (136-145); TOTAL PROTEIN 8.3 g/dL (6.4-8.2); eGFR NON BLACK RACES 40 (>60)
[2018-01-04] MEDS: NEURONTIN CAP 300 MG PO SCH ×3 (05:50→21:56)
[2018-01-04] MEDS: APRESOLINE TAB 25 MG PO SCH ×3 (05:50→21:55)
[2018-01-04] MEDS: CATAPRES TAB 0.3 MG PO SCH ×3 (05:50→21:56)
[2018-01-04] MEDS: COZAAR PO SCH (09:04)
[2018-01-04] MEDS: NORMODYNE TAB 200 MG PO SCH ×2 (09:04→20:24)
[2018-01-04] MEDS: LASIX IVP SCH (09:04)
[2018-01-04] MEDS: ZYLOPRIM PO SCH (09:05)
[2018-01-04] MEDS: NS 1000 ML 1,000 ML IV SCH (12:00)
--- NOTE | 2018-01-04 18:01 | PCM.PROG ---
Progress Note - Progress Note for Day of Date of Exam: 01/04/18 - Subjective Subjective: 47 BM ER ADMISSION ON 01/02 WITH CHF EXACERBATION, SOB AND INCREASED RUE AND LLE EDEMA, ACUTE GOUT ATTACK. PT CONTINUES TO CO RUE AND LLE PAIN AND STIFFNESS THIS AM. US WITHOUT DVT. PT CONTINUES WITH HYPERTENSION, PT CURRENTLY ON PO MEDICATION, HYDRALAZINE IV PRN. PT TO HAVE ECHO TODAY, CONTINUE I & OS, CARDIAC MONITORING - Past Medical Family Social History Past Med/Fam/Surg Hx: No changes since H&P Allergies: Allergies No Known Drug Allergies Allergy (Verified 01/02/18 20:03) - Review of Systems ROS: No change since H&P - Vital Signs and I&O's Vital Signs: Temperature 97.6 F Pulse Rate [Right] 66 Pulse Rate 73 Respiratory Rate 16 Blood Pressure [Right Arm] 186/92 Blood Pressure [Left Arm] 178/90 Blood Pressure 148/69 O2 Sat by Pulse Oximetry 97 Intake and Output: Intake & Output 01/02/18 01/03/18 01/04/18 01/05/18 11:59 11:59 11:59 11:59 Intake Total 910 / 910 2920 / 2920 880 / 880 Output Total 400 / 400 2425 / 2425 800 / 800 Balance 510 / 510 495 / 495 80 / 80 - Physical Exam Oriented: Normal Eyes: Normal Ear: Normal Nose: Normal Throat: Normal Respiratory: Diminished Cardiovascular: Normal, Edema (+2 EDEMA TO RLE, +1 LLE) Tenderness: Normal Skin: Normal Musculoskeletal: Right, Arm, Knee, Leg, Swelling, Tender Psychiatric: Normal Mood Description: Calm Speech Pattern: Clear, Appropriate - Laboratory and Diagnostics Result Diagrams: 01/04/18 04:40 01/04/18 04:40 Labs: Laboratory WBC 6.2 X10^3/uL (3.6-10.0) 01/04/18 04:40 RBC 3.41 X10^6/uL (4.7-6.0) L 01/04/18 04:40 Hgb 10.5 g/dL (13.5-18.0) L 01/04/18 04:40 Hct 31.6 % (42.0-54.0) L 01/04/18 04:40 MCV 92.7 fL (80.0-100.0) 01/04/18 04:40 MCH 30.8 pg (27.0-34.0) 01/04/18 04:40 MCHC 33.2 g/dL (33.0-35.0) 01/04/18 04:40 RDW 14.7 % (11.6-16.5) 01/04/18 04:40 Plt Count 164 X10^3/uL (150.0-450.0) 01/04/18 04:40 Plt Count Comment Cancelled 01/03/18 03:45 MPV 10.0 fL (7.4-11.0) 01/04/18 04:40 Neut % (Auto) 76.8 % (42.0-75.0) H 01/04/18 04:40 Lymph % (Auto) 19.6 % (21.0-51.0) L 01/04/18 04:40 Darke % (Auto) 3.0 % (0.0-13.0) 01/04/18 04:40 Eos % (Auto) 0.1 % (0.9-2.9) L 01/04/18 04:40 Baso % (Auto) 0.5 % (0.2-1.0) 01/04/18 04:40 Neut # (Auto) 4.8 x10^3/uL (2.2-4.8) 01/04/18 04:40 Lymph # (Auto) 1.2 X10^3/uL (1.3-2.9) L 01/04/18 04:40 Darke # (Auto) 0.2 x10^3/uL (0.3-0.8) L 01/04/18 04:40 Eos # (Auto) 0.0 x10^3/uL (0.0-0.2) 01/04/18 04:40 Baso # (Auto) 0.0 X10^3/uL (0.0-0.1) 01/04/18 04:40 Absolute Nucleated RBC 0.0 /100WBC 01/04/18 04:40 Nucleated RBCs Cancelled 01/03/18 03:45 Atypical Lymphocytes Cancelled 01/03/18 03:45 Blast Cells Cancelled 01/03/18 03:45 Smudge Cells Cancelled 01/03/18 03:45 Toxic Granulation Cancelled 01/03/18 03:45 Dohle Bodies Cancelled 01/03/18 03:45 Joel Rods Cancelled 01/03/18 03:45 Plt Clumps, EDTA Cancelled 01/03/18 03:45 Giant Platelets Cancelled 01/03/18 03:45 Plt Morphology Comment Cancelled 01/03/18 03:45 RBC Morphology Cancelled 01/03/18 03:45 Dimorphic RBCs Cancelled 01/03/18 03:45 Polychromasia Cancelled 01/03/18 03:45 Hypochromasia Cancelled 01/03/18 03:45 Poikilocytosis Cancelled 01/03/18 03:45 Basophilic Stippling Cancelled 01/03/18 03:45 Anisocytosis Cancelled 01/03/18 03:45 Microcytosis Cancelled 01/03/18 03:45 Macrocytosis Cancelled 01/03/18 03:45 Spherocytes Cancelled 01/03/18 03:45 Pappenheimer Bodies Cancelled 01/03/18 03:45 Sickle Cells Cancelled 01/03/18 03:45 Target Cells Cancelled 01/03/18 03:45 Tear Drop Cells Cancelled 01/03/18 03:45 Ovalocytes Cancelled 01/03/18 03:45 Stomatocytes Cancelled 01/03/18 03:45 Helmet Cells Cancelled 01/03/18 03:45 Angela-Pontoosuc Bodies Cancelled 01/03/18 03:45 Holt Rings Cancelled 01/03/18 03:45 Naomi Cells Cancelled 01/03/18 03:45 Crenated Cell Cancelled 01/03/18 03:45 Acanthocytes (Spur) Cancelled 01/03/18 03:45 Rouleaux Cancelled 01/03/18 03:45 Schistocytes Cancelled 01/03/18 03:45 ESR 104 MM/HOUR (0-15) H 01/03/18 09:58 INR Target Range - 01/02/18 15:52 INR 1.09 (0.8-1.3) 01/02/18 15:52 APTT 35.8 SECONDS (22.9-36.5) 01/02/18 15:52 PTT Comment - 01/02/18 15:52 D-Dimer 853 ng/mL (0-400) H* 01/02/18 15:52 Sodium 139 mmol/L (136-145) 01/04/18 04:40 Corrected Sodium 140 mmol/L (136-145) 01/04/18 04:40 Potassium 4.2 mmol/L (3.5-5.1) 01/04/18 04:40 Chloride 100 mmol/L (98-107) 01/04/18 04:40 Carbon Dioxide 31.8 mmol/L (21-32) 01/04/18 04:40 BUN 24 mg/dL (7-18) H 01/04/18 04:40 Creatinine 1.93 mg/dL (0.70-1.30) H 01/04/18 04:40 Est GFR (MDRD) Af Amer 48 (>60) L 01/04/18 04:40 Est GFR (MDRD) Non-Af 40 (>60) L 01/04/18 04:40 Glucose 156 mg/dL (65-99) H 01/04/18 04:40 POC Glucose (mg/dL) 132 mg/dL (65-99) H 01/04/18 16:29 Uric Acid 8.8 mg/dL (3.5-7.2) H 01/02/18 15:52 Calcium 8.1 mg/dL (8.5-10.1) L 01/04/18 04:40 Corrected Calcium TNP 01/04/18 04:40 Magnesium 1.9 mg/dL (1.7-2.9) 01/02/18 15:52 Total Bilirubin 0.30 mg/dL (0.2-1.0) 01/04/18 04:40 AST 19 Units/L (15-37) 01/04/18 04:40 ALT 28 Units/L (12-78) 01/04/18 04:40 Alkaline Phosphatase 83 Units/L (46-116) 01/04/18 04:40 Creatine Kinase 297 Units/L (39-308) 01/03/18 09:28 CK-MB (CK-2) 3.0 ng/mL (0-4.0) 01/03/18 09:28 CK/CKMB % Calc 1.0 % (<4) 01/03/18 09:28 Troponin I 0.02 ng/mL (0-1.5) 01/03/18 09:28 C-Reactive Protein 17.60 mg/L (0-3.0) H 01/03/18 09:28 B-Natriuretic Peptide 681 pg/mL (0-79) H* 01/02/18 15:52 Total Protein 8.3 g/dL (6.4-8.2) H 01/04/18 04:40 Albumin 3.7 g/dL (3.4-5.0) 01/04/18 04:40 Globulin 4.6 g/dL (2.5-4.5) H 01/04/18 04:40 Albumin/Globulin Ratio 0.8 Ratio (1.1-2.1) L 01/04/18 04:40 - Plan (1) Congestive heart failure (CHF) Status: Acute Qualifiers: Heart failure type: diastolic Heart failure chronicity: acute on chronic Qualified Code(s): I50.33 - Acute on chronic diastolic (congestive) heart failure Plan: CE ON ADMISSION, CARDIAC MONITORING. BP AND BLOOD SUGAR CONTROL. IV LASIX, REPEAT AM LABS, SUPPLEMENTAL O2. STRICT I & OS. PAIN CONTROL, IV HYDRALAZINE, ECHO ORDERED FOR TODAY. RESUME HOME BP MEDICATION (2) Acute gout Status: Acute (3) Cardiomyopathy Status: Acute Qualifiers: Cardiomyopathy type: unspecified Qualified Code(s): I42.9 - Cardiomyopathy , unspecified (4) Chronic kidney disease (CKD) Status: Acute (5) Cerebrovascular accident (CVA) with right hemiparesis Status: Acute (6) Dependent edema Status: Acute
[2018-01-04] MEDS ORDERED: SNACK - Diabetic Appropriate PO SCH (20:00)
[2018-01-04] MEDS: ZOCOR TAB 40 MG PO SCH (20:26)
[2018-01-04] MEDS: LOVENOX INJ 40 MG SYR SC SCH (21:54)
[2018-01-05] MEDS: APRESOLINE INJ 20 MG VIAL IVP PRN ×2 (01:55→07:42)
[2018-01-05] MEDS: NORCO 10/325 TAB PO SCH ×3 (04:30→15:04)
[2018-01-05 05:32] LABS: BASOPHILS % (AUTO) 0.6 % (0.2-1.0); EOSINOPHILS # (AUTO) 0.1 x10^3/uL (0.0-0.2); EOSINOPHILS % (AUTO) 1.8 % (0.9-2.9); HEMATOCRIT 31.5 % (42.0-54.0); HEMOGLOBIN 10.6 g/dL (13.5-18.0); LYMPHOCYTES # (AUTO) 2.4 X10^3/uL (1.3-2.9); LYMPHOCYTES % (AUTO) 46.4 % (21.0-51.0); MEAN CORPUSCULAR HEMOGLOBIN 30.8 pg (27.0-34.0); MEAN CORPUSCULAR HGB CONC 33.5 g/dL (33.0-35.0); MEAN CORPUSCULAR VOLUME 91.9 fL (80.0-100.0); MEAN PLATELET VOLUME 9.8 fL (7.4-11.0); MONOCYTES # (AUTO) 0.4 x10^3/uL (0.3-0.8); MONOCYTES % (AUTO) 7.4 % (0.0-13.0); NEUTROPHILS # (AUTO) 2.2 x10^3/uL (2.2-4.8); NEUTROPHILS % (AUTO) 43.8 % (42.0-75.0); PLATELET COUNT 167 X10^3/uL (150.0-450.0); RED BLOOD COUNT 3.43 X10^6/uL (4.7-6.0); RED CELL DISTRIBUTION WIDTH 14.8 % (11.6-16.5); WHITE BLOOD COUNT 5.1 X10^3/uL (3.6-10.0)
[2018-01-05 05:41] LABS: ALANINE AMINOTRANSFERASE 30 Units/L (12-78); ALBUMIN 3.8 g/dL (3.4-5.0); ALKALINE PHOSPHATASE 74 Units/L (46-116); ASPARTATE AMINO TRANSFERASE 16 Units/L (15-37); BLOOD UREA NITROGEN 22 mg/dL (7-18); CALCIUM 8.4 mg/dL (8.5-10.1); CARBON DIOXIDE 32.2 mmol/L (21-32); CHLORIDE 101 mmol/L (98-107); CREATININE 1.55 mg/dL (0.70-1.30); SODIUM 141 mmol/L (136-145); eGFR NON BLACK RACES 51 (>60)
[2018-01-05] MEDS: NEURONTIN CAP 300 MG PO SCH ×3 (06:07→15:04)
[2018-01-05] MEDS: APRESOLINE TAB 25 MG PO SCH ×3 (06:07→15:03)
[2018-01-05] MEDS: CATAPRES TAB 0.3 MG PO SCH ×3 (06:07→15:03)
[2018-01-05] MEDS: ZYLOPRIM PO SCH (08:35)
[2018-01-05] MEDS: COZAAR PO SCH (08:35)
[2018-01-05] MEDS: NORMODYNE TAB 200 MG PO SCH (08:35)
[2018-01-05] MEDS: NS 1000 ML 1,000 ML IV SCH (09:16)
[2018-01-05] MEDS: K-LYTE EFFERVESCENT PO PRN (09:18)
--- NOTE | 2018-01-05 13:15 | RAD ---
Chest, one view Indication: CHF, shortness of breath Comparison: 01/03/2018 Findings: There is stable enlargement of the cardiac silhouette without congestive failure. No focal infiltrate, significant effusion or pneumothorax is identified. There is no acute osseous abnormality . Impression: Stable cardiomegaly without congestive failure or additional acute chest process. Reported By:
[2018-01-05 13:23] VITALS: BP 176/82
== END 2018-01-05 15:45 | disposition home or self-care (01) | DRG 291 ==
LOC: MED/SURG 14:45 → ER 14:45 → MED/SURG 21:50
PROVIDERS: ADMIT Internal Medicine; ATTEND Internal Medicine
DX: M25.561 Pain in right knee; I69.851 Hemiplegia and hemiparesis following other cerebrovascular disease affecting right dominant side; N18.9 Chronic kidney disease, unspecified; R79.82 Elevated C-reactive protein (CRP); K21.9 Gastro-esophageal reflux disease without esophagitis; R94.31 Abnormal electrocardiogram [ECG] [EKG]; M10.9 Gout, unspecified; M25.521 Pain in right elbow; E78.2 Mixed hyperlipidemia; I42.9 Cardiomyopathy, unspecified; R26.89 Other abnormalities of gait and mobility; I12.9 Hypertensive chronic kidney disease with stage 1 through stage 4 chronic kidney disease, or unspecified chronic kidney disease; R60.0 Localized edema; I50.33 Acute on chronic diastolic (congestive) heart failure; J44.9 Chronic obstructive pulmonary disease, unspecified; I63.8 Other cerebral infarction
CPT/HCPCS: 36415; 71010; 71045; 73070; 73564; 80053; 82550; 82553; 83735; 83880; 84484; 84550; 85025; 85378; 85610; 85652; 85730; 86140; 93005; 93010; 93306; 93970; 94760; 94762; 96365; 96372; 96374; 96375; 97163; 97167; 99231; 99283; 99284; A4216; A4222; G0378; J0360; J1650; J1940; J2920; J7030; J8499